=== PATIENT | male | born 1990 | race Caucasian/White ===

== ENCOUNTER 2021-11-12 15:07 | Emergency (ER) | payer MEDICAID, SELFPAY ==
[2021-11-12] MEDS ORDERED: PROPOFOL 20 ML ONE (15:33)
[2021-11-12] MEDS ORDERED: Ketorolac Tromethamine 30 MG/ML VIAL ONE (16:24)
== END 2021-11-12 16:34 | disposition home or self-care (01) ==
LOC: MADERS 15:07
DX: S43.004A Unspecified dislocation of right shoulder joint, initial encounter (principal); F17.220 Nicotine dependence, chewing tobacco, uncomplicated; X50.0XXA Overexertion from strenuous movement or load, initial encounter; Y92.096 Garden or yard of other non-institutional residence as the place of occurrence of the external cause
CPT/HCPCS: 23650; 96374; 96375; J1885; J2704